=== PATIENT | female | born 1975 | race Caucasian/White ===

== ENCOUNTER → 2016-08-11 | Outpatient (CLI) | payer BC ==
--- NOTE | 2016-08-11 19:06 | US ---
EXAMINATION TYPE: US transvaginal DATE OF EXAM: 08/11/2016 6:49 PM COMPARISON: NONE CLINICAL HISTORY: DUB, irreg menses, hx c section . TECHNIQUE: Transvaginal (TV) Date of LMP: 07/27/2016, EXAM MEASUREMENTS: Uterus: 7.8 x 5.2 x 4.7 cm Endometrial Stripe: 0.6 cm Right Ovary: 4.0 x 2.6 x 2.3 cm Left Ovary: 3.5 x 2.0 x 2.1 cm TECHNOLOGIST IMPRESSION: 1. Uterus: heterogenous, left KERRIE fibroid, 1.6 x 1.3 x 1.1 cm 2. Endometrium: wnl 3. Right Ovary: cyst with internal echoes= 2.1 x 1.8 x 2.0 cm 4. Left Ovary: follicles Spectral, color and waveform doppler imaging shows good arterial and venous flow within the ovaries ; there is no evidence for ovarian torsion. 5. Bilateral Adnexa: fluid seen adjacent to LO 6. Posterior cul-de-sac: free fluid IMPRESSION: There is a small amount of free fluid in the cul-de-sac. There is a 2 cm complex cyst on the right ovary. Normal endometrium. There is evidence of a small uterine fibroid. No solid adnexal m ass. Normal Values: Uterine Length: < 10cm Endometrium: Proliferative (Day 6 ? 14): 4 ? 6mm Secretory (Day 15 ? 28): 7 ? 14mm Post Menopausal (and not symptomatic): up to 8mm Post Menopausal (with vaginal bleeding): upper limits <5mm Post Menopausal with HRT: upper limits 8 - 15mm Post Menopausal with tamoxifen: < 6mm (although 50% of those receiving tamoxifen have been reported t o have thickness >8mm)
== END | disposition home or self-care (01) ==
LOC: RADUSMAIN 17:50
PROVIDERS: ATTEND Obstetrics & Gynecology
DX: D25.9 Leiomyoma of uterus, unspecified (principal); N83.201 Unspecified ovarian cyst, right side
CPT/HCPCS: 76830

== ENCOUNTER → 2016-09-13 | Outpatient (CLI) | payer BC ==
[2016-09-13 16:48] LABS: Basophils # (A) 0.1 k/uL (0-0.2); Basophils % (A) 0 %; CH 26.1; CHCM 33.1; Eosinophils # (A) 0.1 k/uL (0-0.7); Eosinophils % (A) 1 %; HCT 34.6 % (34.0-46.0); HGB 11.2 gm/dL (11.4-16.0); Luc % (Auto) 3; Lymphocytes # (A) 2.4 k/uL (1.0-4.8); Lymphocytes % (A) 22 %; MCH 25.6 pg (25.0-35.0); MCHC 32.4 g/dL (31.0-37.0); MCV 79.2 fL (80.0-100.0); Mean Platelet Volume 6.4; Monocytes # (A) 0.6 k/uL (0-1.0); Monocytes % (A) 6 %; Neutrophils # (A) 7.6 k/uL (1.3-7.7); Neutrophils % (A) 69 %; Poikilocytosis Slight; RBC 4.37 m/uL (3.80-5.40); RDW 15.7 % (11.5-15.5); WBC 11.1 k/uL (3.8-10.6); WBC (Perox) 12.18
== END | disposition home or self-care (01) ==
LOC: LABPAT 16:14
PROVIDERS: ATTEND Obstetrics & Gynecology
DX: Z01.812 Encounter for preprocedural laboratory examination (principal)
CPT/HCPCS: 36415; 85025

== ENCOUNTER 2016-09-16 06:27 | Day surgery (SDC) | payer BC ==
--- NOTE | 2016-09-15 08:00 | P.HPOB ---
History of Present Illness H&P Date: 09/15/16 Chief Complaint: DUB and vulvar lesion This patient is a pleasant 40 yr female who has a long history of irregular bleeding and also a right vulvar lesion. She was initially seen by me over a year ago and noted to have a vulvar lesion that I recommended be removed. Patient however did not followup and represented now with complaints of persistent irregular bleeding. Ultrasound was negative. She now presents for hysteroscopy and D&C for further evaluation and also removal of the right vulvar lesion. Review of Systems Constitutional: Denies chills, Denies fever Cardiovascular: Denies chest pain, Denies shortness of breath Respiratory: Denies cough Gastrointestinal: Denies abdominal pain, Denies diarrhea, Denies nausea, Denies vomiting Genitourinary: Reports as per HPI Menstruation: Reports as per HPI Musculoskeletal: Denies myalgias Past Medical History Past Medical History: No Reported History History of Any Multi-Drug Resistant Organisms: None Reported Past Surgical History: Section, Tonsillectomy Additional Past Surgical History / Comment(s): Splenectomy Past Anesthesia/Blood Transfusion Reactions: No Reported Reaction Past Psychological History: No Psychological Hx Reported Smoking Status: Current every day smoker Past Alcohol Use History: None Reported Past Drug Use History: None Reported Medications and Allergies Allergies Allergy/AdvReac Type Severity Reaction Status Date / Time Penicillins AdvReac Unknown Verified 09/15/16 07:54 Exam - OBG Physical Exam Abdomen: bowel sounds normal, no diffuse tenderness, no bruit present, no guarding noted, no hepatomegaly, no splenomegaly, no mass Vulva: right: pigmented lesion (~1 cm) Vagina: normal moisture, no discharge Cervix: no lesion, no discharge Uterus: normal size Adnexa: both: normal Results Transvaginal ultrasound shows endometrium to be .6cm Assessment and Plan (1) Dysfunctional uterine bleeding Narrative/Plan: This is a pleasant 40 yr female with dysfunctional uterine bleeding and a chronic right vulvar lesion. Plan is hysteroscopy, D&C and wide local excision of her vulvar lesion. She understands this procedure and risks: infection, bleeding, possible uterine perforation. All of the patients questions were answered and a written consent obtained. Status: Chronic (2) Vulvar lesion Status: Chronic
[2016-09-15 11:48] VITALS: BMI 21.4
[~2016-09-16 06:27] MED LIST: DEXAMETHASONE SOD PHOSPHATE 10 MG/ML 1 ML VIAL IV ONE; HYDROmorphone 1 MG/ML 1 ML SYRINGE IVP PRN; LACTATED RINGERS 1,000 ML IV SCH; MIDAZOLAM 2 MG/2 ML VIAL IV PRN; ONDANSETRON 4 MG/2 ML VIAL IVP ONE; Pre Op ABX Message 1 EACH MISC MISCELLANE ONE; SCOPOLAMINE 1.5MG/72HR PATCH TRANSDERM ONE
[2016-09-16] MEDS ORDERED: LIDOCAINE 1% 20 ML VIAL (10MG/ML) FOR IV START INTRADERMA ONE (06:44)
[2016-09-16] MEDS ORDERED: fentaNYL (PF) 50 MCG/ML 2 ML AMP ONE (07:13)
[2016-09-16] MEDS ORDERED: MIDAZOLAM 2 MG/2 ML VIAL ONE (07:13)
[2016-09-16] MEDS ORDERED: LIDOCAINE 1% INJ 10MG/ML (20 ML MDV) ONE (07:13)
[2016-09-16] MEDS ORDERED: PROPOFOL 10 MG/ML 20 ML VIAL IV ONE (07:13)
--- NOTE | 2016-09-16 07:50 | P.OP ---
Date of Procedure: 09/16/16 Preoperative Diagnosis: #1: Dysfunctional uterine bleeding. #2: Right vulvar skin lesion Postoperative Diagnosis: Same Procedure(s) Performed: #1: Hysteroscopy. #2: Dilation and curettage. #3: Excision of right vulvar skin lesion Anesthesia: MAC Surgeon: Clay Del Toro Estimated Blood Loss (ml): 10 Urine output (ml): 10 Pathology: other (Uterine curettings and right vulvar skin lesion) Condition: stable Disposition: PACU Indications for Procedure: Please see dictated H&P for intimate details of this patient's admission. Brief summary is a pleasant 40-year-old female with long-standing dysfunctional uterine bleeding and also a right vulvar skin lesion. Patient presents for hysteroscopy D&C and excision of this lesion. She does understand the risks of surgery including risks of infection, bleeding, possible uterine perforation. All the patient's questions are answered written consent is obtained. Operative Findings: Patient had a severely retroverted uterus without any significant intrauterine findings on hysteroscope. She had a 1 cm condylomatous type lesion of the right lower vulvar area. Description of Procedure: This patient is taken to the operating room where she is laid in the supine position. She subsequently undergoes general mask anesthesia without incident. With an adequate level of anesthesia placed in dorsal lithotomy position. She has a vaginal perineal prep and drape. Examination under anesthesia shows a significantly retroverted uterus of normal size. I placed a weighted speculum the posterior vagina. The bladder is drained for 10 mL of clear urine. I first grabbed the anterior lip cervix with an Allis clamp. Uterus is sounded to approximately 7 cm. Gentle dilation is done of the endocervix to allow the hysteroscope into the uterine cavity. Using saline solution hysteroscopy is performed and the uterine cavity is visualized it appears normal without evidence of polyps fibroids or other growths. With this done the hysteroscope was removed. Cervix is dilated more to allow a sharp curette easily uterine cavity. A gentle but vigorous curettage of all 4 quadrants is done. Polyp forceps are placed the uterine cavity as well. With adequate sampling done this part of the procedure is terminated. The Allis clamp was removed the weighted speculum was removed. This time I turned my attention to the right vulvar lesion. Using a 10 blade scalpel I do a elliptical excision of this area. Using 3-0 Vicryl I did interrupted sutures of 3-0 Vicryl 4 for hemostasis. All counts are correct 3. There are no complications. Patient is awakened from anesthesia and taken recovery room in satisfactory condition.
[2016-09-16] MEDS: KETOROLAC 30 MG/ML 1 ML VIAL IVP ONE ×2 (08:02→08:03)
[2016-09-16] MEDS ORDERED: LACTATED RINGERS 1,000 ML IV ONE ×2 (08:13)
[2016-09-16 08:18] VITALS: TEMP 97.2
[2016-09-16 08:20] VITALS: RESP 16
[2016-09-16 09:26] VITALS: BP 111/76; PULSE 63
== END 2016-09-16 09:31 | disposition home or self-care (01) ==
LOC: OR 06:27
PROVIDERS: ATTEND Obstetrics & Gynecology
DX: D07.1 Carcinoma in situ of vulva (principal); N87.9 Dysplasia of cervix uteri, unspecified; F17.200 Nicotine dependence, unspecified, uncomplicated; Z88.0 Allergy status to penicillin
CPT/HCPCS: 81025; 88305; 58558; 11621; J2250; J1100; J2405; J2001; J3010; J1885; J1170; J2704